=== PATIENT | female | born 1960 | race Caucasian/White ===

== ENCOUNTER 2017-06-27 13:11 | Emergency (ER) | payer OTHER ==
[2017-06-27 13:16] VITALS: BMI 27.4
[2017-06-27] MEDS ORDERED: Sodium Chloride 0.9% 1,000 ML IV SCH (13:45)
--- NOTE | 2017-06-27 13:46 | ED PDOC ---
Arrival/HPI - General Historian: Patient, Family - History of Present Illness Time/Duration: < week Symptom Onset: Gradual Symptom Course: Unchanged Quality: Throbbing Severity Level: 8 Activities at Onset: Rest, Light, Eating Context: Home - General Chief Complaint: Abdominal Pain Time Seen by Provider: 06/27/17 13:24 - History of Present Illness Narrative History of Present Illness (Text): 06/27/17 13:46 Ms. Bruce is a 57 year old female with a past medical history significant for cholecystitis s/p cholecystectomy in 2011, HTN and DM2 who presents to the [facility] ED with a chief complaint of lower abdominal pain for the past three days. Patient states that three days ago while resting at home, she began to feel a dull throbbing pain in her lower abdomen. The pain has been constant since this time with no changes noted with PO intake or defecation. Patient has tried no medications at home to help relieve this pain. Patient denies fever, chills, N/V , diarrhea, constipation or hematochezia but endorses that she has had pain with defecation and notes that her stools have been much darker than usual. She denies headache, changes in her vision, chest pain, palpitations, syncope, SOB, cough, wheezing, hematemesis, burning/pain with urination, hematuria, vaginal bleeding/discharge, rash, numbness/tingling/weakness of any extremity. Of note, patient also denies any recent hospitalizations or recent antibiotic use. Patients son was at bedside and provided translation as patients first language is Belarusian. (YARIEL SUBRAMANIAN) Past Medical History - Provider Review Nursing Documentation Reviewed: Yes - Travel History Have you recently traveled outside [place] w/in the past 3 mons?: No - Past History Past History: No Previous - Infectious Disease Hx of Infectious Diseases: None - Tetanus Immunization Tetanus Immunization: Unknown - Reproductive Menopause: Yes - Cardiac Hx Cardiac Disorders: Yes (HTN, but denies any prior heart problems) Hx Hypertension: Yes - Pulmonary Hx Respiratory Disorders: No - Neurological Hx Neurological Disorder: Yes Hx Dizziness: Yes - HEENT Hx HEENT Disorder: Yes (uses glasses) - Renal Hx Renal Disorder: No - Endocrine/Metabolic Hx Endocrine Disorders: Yes Hx Diabetes Mellitus Type 2: Yes - Hematological/Oncological Hx Blood Disorders: No - Integumentary Hx Dermatological Disorder: No - Musculoskeletal/Rheumatological Hx Musculoskeletal Disorders: Yes Hx Back Pain: Yes (hx of epidurals) - Gastrointestinal Hx Gastrointestinal Disorders: Yes Hx Gastroesophageal Reflux: Yes - Genitourinary/Gynecological Hx Genitourinary Disorders: No - Psychiatric Hx Psychophysiologic Disorder: No Hx Substance Use: No - Surgical History Hx Cholecystectomy: Yes - Anesthesia Hx Anesthesia: Yes Hx Anesthesia Reactions: No Hx Malignant Hyperthermia: No - Suicidal Assessment Feels Threatened In Home Enviroment: No Family/Social History - Physician Review Nursing Documentation Reviewed: Yes Family/Social History: Diabetes Smoking Status: Never Smoked Hx Alcohol Use: No Hx Substance Use: No Hx Substance Use Treatment: No Allergies/Home Meds Allergies/Adverse Reactions: Allergies PORK Allergy (Unknown, Verified 06/27/17 13:17) FATIGUE shrimp Allergy (Intermediate, Uncoded 06/27/17 13:17) ANAPHYLAXIS eggplant Allergy (Uncoded 06/27/17 13:17) ITCHING Home Medications: Home Meds Medication Instructions Recorded Confirmed Omeprazole 20 mg PO DAILY 04/06/14 06/27/17 Acetaminophen with Codeine 1 tab PO PRN PRN 06/27/17 06/27/17 [Tylenol with Codeine #3 Tablet] Lisinopril [Zestril] 10 mg PO DAILY 06/27/17 06/27/17 metFORMIN [glucOPHAGE] 500 mg PO BID 06/27/17 06/27/17 Review of Systems - Physician Review All systems were reviewed & negative as marked: Yes - Review of Systems Constitutional: Normal. absent: Fatigue, Fevers, Night Sweats Eyes: Normal. absent: Vision Changes ENT: Normal. absent: Sore Throat Respiratory: Normal. absent: SOB, Cough, Wheezing Cardiovascular: Normal. absent: Chest Pain, Palpitations, Syncope Gastrointestinal: Abdominal Pain, Stool Changes (Darker than usual). absent: Normal, Constipation, Diarrhea, Nausea, Vomiting, Appetite Changes, Hematochezia , Hematemesis, Food Intolerance Genitourinary Female: Normal. absent: Dysuria, Hematuria, Vaginal Bleeding, Vaginal Discharge Musculoskeletal: Normal Skin: Normal. absent: Rash Neurological: Normal. absent: Headache, Dizziness Endocrine: Normal. absent: Polyuria, Polydipsia Hemo/Lymphatic: Normal Psychiatric: Normal Physical Exam Vital Signs Reviewed: Yes Temperature: Afebrile Blood Pressure: Normal Pulse: Regular Respiratory Rate: Normal Appearance: Positive for: Well-Appearing, Non-Toxic, Comfortable Pain Distress: Mild Mental Status: Positive for: Alert and Oriented X 3 - Systems Exam Head: Present: Atraumatic, Normocephalic Pupils: Present: PERRL Extroacular Muscles: Present: EOMI Conjunctiva: Present: Normal Mouth: Present: Moist Mucous Membranes Pharnyx: Present: Normal. No: ERYTHEMA, EXUDATE, TONSILS ENLARGED Nose (External): Present: Atraumatic Nose (Internal): Present: Normal Inspection Neck: Present: Normal Range of Motion, Trachea Midline. No: Meningeal Signs, MIDLINE TENDERNESS, Paraspinal Tenderness, JVD, Lymphadenopathy Respiratory/Chest: Present: Clear to Auscultation, Good Air Exchange. No: Respiratory Distress, Accessory Muscle Use, Wheezes, Decreased Breath Sounds, Rales, Retracting, Rhonchi, Tachypneic Cardiovascular: Present: Regular Rate and Rhythm, Normal S1, S2, Peripheal Pulses Present. No: Murmurs, Irregular Rhythm, Tachycardic, Bradycardic Abdomen: Present: Tenderness (Hypogastric and RLQ tenderness to palpation), Normal Bowel Sounds. No: Distention, Peritoneal Signs, Rebound, Guarding Back: Present: Normal Inspection. No: CVA Tenderness, Midline Tenderness, Paraspinal Tenderness Upper Extremity: Present: Normal Inspection, Normal ROM, NORMAL PULSES, Capillary Refill < 2s. No: Cyanosis, Edema Lower Extremity: Present: Normal Inspection, NORMAL PULSES, Normal ROM, Capillary Refill < 2 s. No: Edema, CALF TENDERNESS Neurological: Present: GCS=15, CN II-XII Intact, Speech Normal Skin: Present: Warm, Dry, Normal Color. No: Rashes Lymphatic: No: Cervical Adenopathy Psychiatric: Present: Alert, Oriented x 3, Normal Insight, Normal Concentration Vital Signs Temp Pulse Resp BP Pulse Ox 06/27/17 15:12 97.8 F 60 15 118/68 100 06/27/17 13:43 98.1 F 60 17 121/71 100 06/27/17 13:19 98.2 F 61 17 144/80 80 L Medical Decision Making - Lab Interpretations I have reviewed the lab results: Yes Interpretation: No sign. chg./baseline - RAD Interpretation Production Team Leader: Radiologist ED Course and Treatment: pt seen with resident. pt with 3 day h/o of lower abdominal pain. pt reports at times "dark stool". in er, pt trace guiac positive. ct neg. h/h stable. labs unremarkable. 06/27/17 16:14 (Kumar Thurston) 06/27/17 14:00 Impression: 57 year old female with a past medical history significant for cholecystitis s/p cholecystectomy in 2011, HTN and DM2 who presents to the [facility] ED with a chief complaint of lower abdominal pain for the past three days Plan: -CBC, CMP, amylase, lipase, PT/INR, aPTT, cardiac iso's and UA -Stool for occult blood -CT abdomen/pelvis w/ IV contrast -Protonix 40mg IVP -Normal Saline at 100mls/hr -ED NPO -Reassess and disposition Prior Visits: All reports and results from previous hospital visits were reviewed. 03/29/2014: Patient was seen and evaluated for bradycardia (YARIEL SUBRAMANIAN) - Lab Interpretations Narrative Lab Interpretation (Text): 06/27/17 14:38 Patient trace positive for stool guaiac in ED (YARIEL SUBRAMANIAN) Lab Results: 06/27/17 14:14 06/27/17 14:14 Lab Results 06/27/17 14:14: PT 10.4, INR 0.96, APTT 25.7 06/27/17 14:14: Sodium 142, Potassium 4.0, Chloride 106, Carbon Dioxide 25, Anion Gap 15, BUN 9, Creatinine 0.5 L, Est GFR ( Amer) > 60, Est GFR (Non -Af Amer) > 60, Random Glucose 156 H, Calcium 9.5, Total Bilirubin 0.4, AST 38 H , ALT 58 H, Alkaline Phosphatase 112, Lactate Dehydrogenase 397, Total Creatine Kinase 101, Troponin I < 0.01, Total Protein 7.4, Albumin 4.4, Globulin 3.1, Albumin/Globulin Ratio 1.4, Amylase 72, Lipase 136 06/27/17 14:14: WBC 7.0, RBC 3.76, Hgb 11.4 L, Hct 34.1 L, MCV 90.7, MCH 30.3, MCHC 33.4, RDW 12.3, Plt Count 179, MPV 11.3 H, Gran % 45.4 L, Lymph % (Auto) 42.8 H, [place] % (Auto) 8.4 H, Eos % (Auto) 3.3, Baso % (Auto) 0.1, Gran # 3.19, Lymph # 3.0, [place] # 0.6, Eos # 0.2, Baso # 0.01 06/27/17 14:10: Urine Color Yellow, Urine Appearance Clear, Urine pH 6.0, Ur Specific [place] <= 1.005, Urine Protein Negative, Urine Glucose (UA) Negative, Urine Ketones Negative, Urine Blood Negative, Urine Nitrate Negative, Urine Bilirubin Negative, Urine Urobilinogen 0.2, Ur Leukocyte Esterase Negative - RAD Interpretation Radiology Orders: 06/27/17 13:36 ABD & PELVIS IV CONTRAST ONLY [CT] Stat - Medication Orders Current Medication Orders: Sodium Chloride (Sodium Chloride 0.9%) 1,000 mls @ 100 mls/hr IV .Q10H MARINO Last Admin: 06/27/17 14:08 Dose: 100 mls/hr eMAR Start Stop Document 06/27/17 14:08 AB (Rec: 06/27/17 14:09 [id number]) Intravenous Solution Start Date 06/27/17 Start Time 14:08 End Date 06/27/17 Discontinued Medications Pantoprazole Sodium (Protonix Inj) 40 mg IVP STAT STA Stop: 06/27/17 13:41 Last Admin: 06/27/17 14:02 Dose: 40 mg IVP Administration Document 06/27/17 14:02 AB (Rec: 06/27/17 14:08 [id number]) Charges for Administration # of IVP Administrations 1 Disposition/Present on Arrival - Present on Arrival Any Indicators Present on Arrival: No History of DVT/PE: No History of Uncontrolled Diabetes: No Urinary Catheter: No History of Decub. Ulcer: No History Surgical Site Infection Following: None - Disposition Have Diagnosis and Disposition been Completed?: Yes Disposition Time: 16:18 - Disposition Diagnosis: GI (gastrointestinal bleed) Disposition: AGAINST MEDICAL ADVICE Condition: STABLE Discharge Instructions (ExitCare): Gastrointestinal Bleeding (DC) Additional Instructions: Ms. Bruce, thank you for letting us take care of you today. Your provider was Dr. Thurston. You were treated for GI bleeding. The emergency medical care you received today was directed at your acute symptoms. If you were prescribed any medication, please fill it and take as directed. It may take several days for your symptoms to resolve. Return to the Emergency Department if your symptoms worsen, do not improve, or if you have any other problems. Please contact your doctor or call one of the physicians/clinics you have been referred to that are listed on the Patient Visit Information form that is included in your discharge packet. Bring any paperwork you were given at discharge with you along with any medications you are taking to your follow up visit. Our treatment cannot replace ongoing medical care by a primary care provider (PCP) outside of the emergency department. PLEASE FOLLOW UP WITH YOUR PRIMARY CARE DOCTOR AND A GI DOCTOR OF YOUR CHOICE. ONE OF EACH HAS BEEN REFERRED TO YOU ALONG WITH CONTACT INFORMATION. Thank you for allowing the [facility] team to be part of your care today. If you had an X-Ray or CT scan: A Radiologist will review the ED reading if any change in treatment is needed we will contact you. Referrals: PCP,JULI [Primary Care Provider] - Follow up with primary [facility] [Outside] - Follow up with primary Gonzalo Wyatt MD [Staff Provider] - Follow up with primary [facility] [Outside] - Follow up with primary Forms: [employer] (Zimbabwean) Against Medical Advice - AMA Patient Left Against Medical Advice: The patient declines admission to the hospital and wishes to leave the Emergency Department. This action is against my medical advice. This decision was made with informed refusal. The patient was told that admission to the hospital is necessary. Explanation of the reasons why were discussed. The risks of leaving were explained to the patient and include, but are not limited to, worsening of known or currently unknown conditions, permanent disability and from undiagnosed or untreated conditions. The patient has the capacity to make this informed decision and understands my explanation of the current medical problem and risks of leaving. The patient voluntarily accepts these risks and signed an AMA form documenting our conversation. The patient was given the opportunity to ask questions and reconsider. The patient was encouraged to return to the Emergency Department at any time for further care.
[2017-06-27 14:21] LABS: BASO # 0.01 K/mm3 (0.0-2.0); BASO % 0.1 % (0.0-3.0); EOS # 0.2 (0.0-0.7); EOS % 3.3 % (1.5-5.0); GRAN # 3.19 (1.4-6.5); GRAN % 45.4 % (50.0-68.0); HEMATOCRIT 34.1 % (36.0-48.0); LYMPH % 42.8 % (22.0-35.0); MEAN CELL VOLUME 90.7 fl (80.0-105.0); MEAN CORPUSCULAR HEMOGLOBIN 30.3 pg (25.0-35.0); MEAN CORPUSCULAR HGB CONC 33.4 g/dl (31.0-37.0); MEAN PLATELET VOLUME 11.3 fl (7.0-11.0); MONO # 0.6 (0.1-0.6); MONO % 8.4 % (1.0-6.0); RED CELL DISTRIBUTION WIDTH 12.3 % (11.5-14.5)
[2017-06-27 14:28] LABS: INR 0.96 (0.93-1.08); PARTIAL THROMBOPLASTIN TIME 25.7 Seconds (23.7-30.8)
[2017-06-27 14:31] LABS: ALB/GLOB RATIO 1.4 (1.1-1.8); ALKALINE PHOSPHATASE 112 U/L (38-126); ALT/SGPT 58 U/L (7-56); AMYLASE 72 U/L (35-125); AST/SGOT 38 U/L (14-36); BILIRUBIN,TOTAL 0.4 mg/dL (0.2-1.3); BLOOD UREA NITROGEN 9 mg/dL (7-21); CALCIUM 9.5 mg/dL (8.4-10.5); CARBON DIOXIDE 25 mmol/L (21-33); CHLORIDE 106 mmol/L (98-107); GFR AFRICAN-AMERICAN > 60; GLUCOSE,RANDOM 156 mg/dL (70-110); LIPASE 136 U/L (23-300); SODIUM 142 mmol/L (132-148); TOTAL PROTEIN 7.4 g/dL (5.8-8.3)
[2017-06-27 14:42] LABS: TROPONIN I < 0.01 ng/mL
[2017-06-27 15:00] LABS: URINE BILIRUBIN NEGATIVE (NEGATIVE); URINE BLOOD NEGATIVE (NEGATIVE); URINE GLUCOSE (UA) NEGATIVE (NEGATIVE); URINE KETONE NEGATIVE (NEGATIVE); URINE LEUKOCYTE ESTERASE NEGATIVE Leu/uL (NEGATIVE); URINE PROTEIN NEGATIVE mg/dL (<30 mg/dL); URINE UROBILINOGEN 0.2 E.U./dL (<1 E.U./dL)
[2017-06-27 15:06] LABS: URINE APPEARANCE CLEAR (CLEAR); URINE COLOR YELLOW (YELLOW)
[2017-06-27] MEDS ORDERED: Iohexol 350 MG/100 ML VIAL ONE (15:17)
[2017-06-27 15:20] VITALS: RESP 15
[2017-06-27 15:59] VITALS: BP 118/68; PULSE 60; TEMP 97.8; O2SAT 100
--- NOTE | 2017-06-27 16:08 | CT ---
PROCEDURE: CT Abdomen and Pelvis with contrast HISTORY: Abdominal pain/dark stools COMPARISON: 04/08/2014 CT TECHNIQUE: Contrast dose: 100 cc of Omni 350 Radiation dose: Total exam DLP = 482 mGy-cm. This CT exam was performed using one or more of the following dose reduction techniques: Automated exposure control, adjustment of the mA and/or kV according to patient size, and/or use of iterative reconstruction technique. FINDINGS: LOWER THORAX: Unremarkable. LIVER: Unremarkable. No gross lesion or ductal dilatation. Mild fatty infiltration of the liver GALLBLADDER AND BILE DUCTS: Gallbladder removed PANCREAS: Unremarkable. No gross lesion or ductal dilatation. SPLEEN: Unremarkable. ADRENALS: Unremarkable. No mass. KIDNEYS AND URETERS: Unremarkable. No hydronephrosis. No solid mass. VASCULATURE: Unremarkable. No aortic aneurysm. BOWEL: Unremarkable. No obstruction. No gross mural thickening. APPENDIX: Normal appendix. PERITONEUM: Unremarkable. No free fluid. No free air. LYMPH NODES: Unremarkable. No enlarged lymph nodes. BLADDER: Unremarkable. REPRODUCTIVE: Unremarkable. BONES: No acute fracture. OTHER FINDINGS: None. IMPRESSION: Unremarkable contrast enhanced CT of the abdomen and pelvis.
== END 2017-06-27 16:53 | disposition left against medical advice (07) ==
LOC: ED 13:11
DX: K92.2 Gastrointestinal hemorrhage, unspecified (principal); E11.9 Type 2 diabetes mellitus without complications; I10 Essential (primary) hypertension
CPT/HCPCS: 74177; 80053; 81003; 82150; 82550; 83615; 83690; 84484; 85025; 85610; 85730; 96374; 99284; C9113; J7040; Q9967

== ENCOUNTER 2017-08-15 13:32 | Emergency (ER) | payer MEDICAID ==
[2017-08-15 13:32] VITALS: BMI 27.4
[2017-08-15 13:52] VITALS: RESP 16; TEMP 98
--- NOTE | 2017-08-15 14:14 | ED PDOC ---
Arrival/HPI - General Chief Complaint: Abdominal Pain Time Seen by Provider: 08/15/17 13:46 - History of Present Illness Narrative History of Present Illness (Text): 57 year old year old female w/ past medical history of hypertension, hyperlipidemia, dm presents complaining of > 7 wks of diarrhea 3-6 times daily mostly watery and loose , never w/ BRBPR/ melena/ recent history of antibiotic admin. + history of distant parasitosis in [facility] 08/15/17 14:14 Time/Duration: > month Symptom Course: Unchanged Past Medical History - Provider Review Nursing Documentation Reviewed: Yes - Past History Past History: No Previous - Infectious Disease Hx of Infectious Diseases: None - Tetanus Immunization Tetanus Immunization: Unknown - Reproductive Menopause: Yes - Cardiac Hx Cardiac Disorders: Yes (HTN, but denies any prior heart problems) Hx Hypertension: Yes - Pulmonary Hx Respiratory Disorders: No - Neurological Hx Neurological Disorder: Yes Hx Dizziness: Yes - HEENT Hx HEENT Disorder: Yes (uses glasses) - Renal Hx Renal Disorder: No - Endocrine/Metabolic Hx Endocrine Disorders: Yes Hx Diabetes Mellitus Type 2: Yes - Hematological/Oncological Hx Blood Disorders: No - Integumentary Hx Dermatological Disorder: No - Musculoskeletal/Rheumatological Hx Musculoskeletal Disorders: Yes Hx Back Pain: Yes (hx of epidurals) - Gastrointestinal Hx Gastrointestinal Disorders: Yes Hx Gastroesophageal Reflux: Yes - Genitourinary/Gynecological Hx Genitourinary Disorders: No - Psychiatric Hx Psychophysiologic Disorder: No Hx Substance Use: No - Surgical History Hx Cholecystectomy: Yes - Anesthesia Hx Anesthesia: Yes Hx Anesthesia Reactions: No Hx Malignant Hyperthermia: No - Suicidal Assessment Feels Threatened In Home Enviroment: No Family/Social History - Physician Review Nursing Documentation Reviewed: Yes Family/Social History: No Known Family HX Smoking Status: Never Smoked Hx Alcohol Use: No Hx Substance Use: No Hx Substance Use Treatment: No Allergies/Home Meds Allergies/Adverse Reactions: Allergies PORK Allergy (Unknown, Verified 06/27/17 13:17) FATIGUE shrimp Allergy (Intermediate, Uncoded 06/27/17 13:17) ANAPHYLAXIS eggplant Allergy (Uncoded 06/27/17 13:17) ITCHING Home Medications: Home Meds Medication Instructions Recorded Confirmed Acetaminophen with Codeine 1 tab PO PRN PRN 06/27/17 06/27/17 [Tylenol with Codeine #3 Tablet] Lisinopril [Zestril] 10 mg PO DAILY 10/04/17 11/22/17 metFORMIN [glucOPHAGE] 500 mg PO BID 06/27/17 08/15/17 Review of Systems - Physician Review All systems were reviewed & negative as marked: Yes - Review of Systems Constitutional: Normal Eyes: Normal ENT: Normal Respiratory: Normal Cardiovascular: Normal Gastrointestinal: Abdominal Pain, Diarrhea Genitourinary Female: Normal Musculoskeletal: Normal Skin: Normal Neurological: Normal Endocrine: Normal Hemo/Lymphatic: Normal Psychiatric: Normal Physical Exam Vital Signs Reviewed: Yes Vital Signs Temp Pulse Resp BP Pulse Ox 08/15/17 13:41 98 F 58 L 16 122/77 96 Temperature: Afebrile Blood Pressure: Normal Pulse: Regular Respiratory Rate: Normal Appearance: Positive for: Well-Appearing, Non-Toxic, Comfortable Pain Distress: None Mental Status: Positive for: Alert and Oriented X 3 - Systems Exam Head: Present: Atraumatic, Normocephalic Pupils: Present: PERRL Extroacular Muscles: Present: EOMI Conjunctiva: Present: Normal Mouth: Present: Moist Mucous Membranes Neck: Present: Normal Range of Motion Respiratory/Chest: Present: Clear to Auscultation, Good Air Exchange. No: Respiratory Distress, Accessory Muscle Use Cardiovascular: Present: Regular Rate and Rhythm, Normal S1, S2. No: Murmurs Abdomen: Present: Normal Bowel Sounds, Other (mild distratible upper quadrant discomfort w/ deep palpation). No: Tenderness, Distention, Peritoneal Signs Back: Present: Normal Inspection Upper Extremity: Present: Normal Inspection. No: Cyanosis, Edema Lower Extremity: Present: Normal Inspection. No: Edema Neurological: Present: GCS=15, CN II-XII Intact, Speech Normal, Motor Func Grossly Intact, Normal Sensory Function, Normal Cerebellar Funct, Norm Deep Tendon Reflexes, Gait Normal, Memory Normal, Normal 2Pt Descrimination Skin: Present: Warm, Dry, Normal Color. No: Rashes Psychiatric: Present: Alert, Oriented x 3, Normal Insight, Normal Concentration Medical Decision Making ED Course and Treatment: 7 year old [place] w/ past medical history of DM, HTN prior visit w/ similar complaints p/w 6-7 weeks of ongoing diarrheal bm's denying any recent history of travel. Serial bowel exams wnl. Labs wnl. unable to produce stool sample in emergency department for further stool characterization. Will try on a week of diet modification/ abx /psyllium and bentyl to see if diarrhea and and pain improved. 08/15/17 16:05 - Lab Interpretations Lab Results: 08/15/17 13:48 Lab Results 08/15/17 15:00: PT 11.0, INR 1.01, APTT 29.0 08/15/17 13:50: Urine Color Straw, Urine Appearance Clear, Urine pH 6.0, Ur Specific [place] <= 1.005, Urine Protein Negative, Urine Glucose (UA) Negative, Urine Ketones Negative, Urine Blood Negative, Urine Nitrate Negative, Urine Bilirubin Negative, Urine Urobilinogen 0.2, Ur Leukocyte Esterase Negative 08/15/17 13:48: WBC 7.4, RBC 3.83, Hgb 11.5 L, Hct 34.6 L, MCV 90.3, MCH 30.0, MCHC 33.2, RDW 12.2, Plt Count 172, MPV 12.1 H, Gran % 50.3, Lymph % (Auto) 41.1 H, [place] % (Auto) 6.0, Eos % (Auto) 2.2, Baso % (Auto) 0.4, Gran # 3.72, Lymph # 3.0, [place] # 0.4, Eos # 0.2, Baso # 0.03 - RAD Interpretation Radiology Orders: 08/15/17 13:48 ABD 2 VIEWS (FLAT/UP OR DECUB) [RAD] Stat 08/15/17 13:50 CHEST TWO VIEWS (PA/LAT) [RAD] Stat Disposition/Present on Arrival - Present on Arrival Any Indicators Present on Arrival: No History of DVT/PE: No History of Uncontrolled Diabetes: No Urinary Catheter: No History of Decub. Ulcer: No History Surgical Site Infection Following: None - Disposition Have Diagnosis and Disposition been Completed?: Yes Diagnosis: Diarrhea Disposition: HOME/ ROUTINE Disposition Time: 16:11 Patient Plan: Discharge Condition: IMPROVED Discharge Instructions (ExitCare): Acute Diarrhea (ED), Chronic Diarrhea (ED) Print Language: EMIRATI Additional Instructions: Avoid diary and meat while with dairy and taking the antiobiotics. Drink plenty of water to combat dehydration. Please follow up wtih your regular pmd for further stool testig which could help us in identifying the cause of your continuing diarrhea. Prescriptions: Ciprofloxacin HCl [Cipro] 500 mg PO BID #14 tablet Dicyclomine [Dicyclomine HCl] 10 mg PO TID PRN #20 cap PRN Reason: Pain, Moderate (4-7) Metronidazole [Flagyl] 500 mg PO TID #21 tab Psyllium Husk [Konsyl] 300 gm PO BID PRN 5 Days powder PRN Reason: Diarrhea Referrals: Sultan Powers MD [Primary Care Provider] - Follow up with primary Forms: [employer] (Chinese)
[2017-08-15 14:28] LABS: URINE BILIRUBIN NEGATIVE (NEGATIVE); URINE BLOOD NEGATIVE (NEGATIVE); URINE GLUCOSE (UA) NEGATIVE (NEGATIVE); URINE KETONE NEGATIVE (NEGATIVE); URINE LEUKOCYTE ESTERASE NEGATIVE Leu/uL (NEGATIVE); URINE PROTEIN NEGATIVE mg/dL (<30 mg/dL); URINE UROBILINOGEN 0.2 E.U./dL (<1 E.U./dL)
[2017-08-15 14:34] LABS: URINE APPEARANCE CLEAR (CLEAR); URINE COLOR STRAW (YELLOW)
[2017-08-15 14:57] LABS: BASO # 0.03 K/mm3 (0.0-2.0); BASO % 0.4 % (0.0-3.0); EOS # 0.2 (0.0-0.7); EOS % 2.2 % (1.5-5.0); GRAN # 3.72 (1.4-6.5); GRAN % 50.3 % (50.0-68.0); HEMATOCRIT 34.6 % (36.0-48.0); LYMPH % 41.1 % (22.0-35.0); MEAN CELL VOLUME 90.3 fl (80.0-105.0); MEAN CORPUSCULAR HGB CONC 33.2 g/dl (31.0-37.0); MEAN PLATELET VOLUME 12.1 fl (7.0-11.0); MONO # 0.4 (0.1-0.6); RED CELL DISTRIBUTION WIDTH 12.2 % (11.5-14.5); WHITE BLOOD COUNT 7.4 10^3/ul (4.5-11.0)
[2017-08-15 15:05] LABS: INR 1.01 (0.93-1.08)
--- NOTE | 2017-08-15 15:52 | RAD ---
HISTORY: Routine medical exam COMPARISON: 01/01/2015 TECHNIQUE: Chest PA and lateral FINDINGS: LUNGS: No active pulmonary disease. PLEURA: No significant pleural effusion identified. No pneumothorax apparent. CARDIOVASCULAR: Cardiomegaly, mild pulmonary vascular congestion. OSSEOUS STRUCTURES: No significant abnormalities. VISUALIZED UPPER ABDOMEN: Normal. OTHER FINDINGS: None. IMPRESSION: No active pulmonary disease.
--- NOTE | 2017-08-15 15:54 | RAD ---
HISTORY: examine gas pattern COMPARISON: She FINDINGS: BOWEL: Normal. No obstruction. No free air. BONES: Normal. OTHER FINDINGS: None. IMPRESSION: No significant or acute findings to account for/ related to the clinical presentation.
[2017-08-15 16:30] LABS: ALB/GLOB RATIO 1.2 (1.1-1.8); ALKALINE PHOSPHATASE 113 U/L (38-126); ALT/SGPT 52 U/L (7-56); AMYLASE 78 U/L (35-125); AST/SGOT 33 U/L (14-36); BILIRUBIN,TOTAL 0.5 mg/dL (0.2-1.3); BLOOD UREA NITROGEN 10 mg/dL (7-21); CALCIUM 9.6 mg/dL (8.4-10.5); CARBON DIOXIDE 27 mmol/L (21-33); CHLORIDE 105 mmol/L (98-107); GFR AFRICAN-AMERICAN > 60; GLUCOSE,RANDOM 167 mg/dL (70-110); LIPASE 204 U/L (23-300); POTASSIUM 4.1 mmol/L (3.6-5.0); SODIUM 143 mmol/L (132-148); TOTAL PROTEIN 7.6 g/dL (5.8-8.3)
[2017-08-15 16:54] VITALS: BP 123/87; PULSE 60; O2SAT 100
== END 2017-08-15 16:50 | disposition home or self-care (01) ==
LOC: ED 13:32
DX: R19.7 Diarrhea, unspecified (principal); I10 Essential (primary) hypertension; E11.9 Type 2 diabetes mellitus without complications

== ENCOUNTER 2017-08-23 15:20 | Emergency (ER) | payer MEDICAID ==
[2017-08-23 15:21] VITALS: BMI 27.4
[2017-08-23 15:33] VITALS: TEMP 97.8
[2017-08-23] MEDS ORDERED: Sodium Chloride 0.9% 1,000 ML IV STA (16:01)
--- NOTE | 2017-08-23 16:08 | ED PDOC ---
Arrival/HPI - General Historian: Patient, Family - History of Present Illness Time/Duration: > month Symptom Onset: Sudden Symptom Course: Unchanged Quality: Cramping Severity Level: Mild - General Chief Complaint: GI Problem Time Seen by Provider: 08/23/17 15:23 - History of Present Illness Narrative History of Present Illness (Text): 08/23/17 16:04 This is a 57 yo female with past medical hx of HTN, DM, PUD, presenting with chief complaint of diarrhea. Diarrhea has been present x 2 months . It is watery in nature but not very voluminous. It occurs with every BM. Denies recent travel. Does not happen any particular time of day. Denies hx of IBD. It is non bloody. Pt has been eliminating certain foods from her diet but the diarrhea persists. Son reports pt is under a lot of stress and thinks that there could be an association. Also reports some right sided abdominal pain, non radiating. Feels like gas pains. Denies vomiting, fevers, chills. PMH: DM, HTN, PUD PSH: cholecystectomy Allergies: NKDA FH: DM Home meds: metformin, lisinopril, protonix Social hx: denies smoking, drinking, drug use. Born in [facility]. (Edilson Rodriguez) Past Medical History - Provider Review Nursing Documentation Reviewed: Yes - Past History Past History: No Previous - Infectious Disease Hx of Infectious Diseases: None - Tetanus Immunization Tetanus Immunization: Unknown - Cardiac Hx Cardiac Disorders: Yes (HTN, but denies any prior heart problems) Hx Hypertension: Yes - Pulmonary Hx Respiratory Disorders: No - Neurological Hx Neurological Disorder: Yes Hx Dizziness: Yes - HEENT Hx HEENT Disorder: Yes (uses glasses) - Renal Hx Renal Disorder: No - Endocrine/Metabolic Hx Endocrine Disorders: Yes Hx Diabetes Mellitus Type 2: Yes - Hematological/Oncological Hx Blood Disorders: No - Integumentary Hx Dermatological Disorder: No - Musculoskeletal/Rheumatological Hx Musculoskeletal Disorders: Yes Hx Back Pain: Yes (hx of epidurals) - Gastrointestinal Hx Gastrointestinal Disorders: Yes Hx Gastroesophageal Reflux: Yes - Genitourinary/Gynecological Hx Genitourinary Disorders: No - Psychiatric Hx Psychophysiologic Disorder: No Hx Substance Use: No - Surgical History Hx Cholecystectomy: Yes - Anesthesia Hx Anesthesia: Yes Hx Anesthesia Reactions: No Hx Malignant Hyperthermia: No - Suicidal Assessment Feels Threatened In Home Enviroment: No Family/Social History - Physician Review Nursing Documentation Reviewed: Yes Family/Social History: Diabetes Smoking Status: Never Smoked Hx Alcohol Use: No Hx Substance Use: No Hx Substance Use Treatment: No Allergies/Home Meds Allergies/Adverse Reactions: Allergies PORK Allergy (Unknown, Verified 08/23/17 15:33) FATIGUE shrimp Allergy (Intermediate, Uncoded 08/23/17 15:33) ANAPHYLAXIS eggplant Allergy (Uncoded 08/23/17 15:33) ITCHING Home Medications: Home Meds Medication Instructions Recorded Confirmed Lisinopril [Zestril] 20 mg PO DAILY 06/27/17 08/23/17 metFORMIN [glucOPHAGE] 500 mg PO BID 06/27/17 08/23/17 Pantoprazole [Protonix EC Tab] 20 mg PO BID 08/23/17 08/23/17 Review of Systems - Review of Systems Constitutional: Weight Change. absent: Fevers, Night Sweats Eyes: absent: Vision Changes, Photophobia ENT: absent: Hearing Changes, Tinnitus Respiratory: absent: SOB, Cough Cardiovascular: absent: Chest Pain, Palpitations Gastrointestinal: Abdominal Pain, Stool Changes, Diarrhea. absent: Nausea, Vomiting Genitourinary Female: absent: Dysuria, Frequency Musculoskeletal: Arthralgias Skin: absent: Rash, Pruritis Neurological: Dizziness. absent: Headache Endocrine: absent: Diaphoresis, Polyuria Hemo/Lymphatic: absent: Adenopathy, Easy Bleeding Psychiatric: absent: Anxiety, Depression Physical Exam Vital Signs Reviewed: Yes Mental Status: Positive for: Alert and Oriented X 3 - Systems Exam Head: Present: Atraumatic, Normocephalic Pupils: Present: PERRL Extroacular Muscles: Present: EOMI Neck: Present: Normal Range of Motion. No: JVD Respiratory/Chest: Present: Clear to Auscultation. No: Respiratory Distress Cardiovascular: Present: Normal S1, S2 Abdomen: No: Tenderness (very minimal tenderness to deep palpation), Distention , Peritoneal Signs, Rebound, Guarding Upper Extremity: Present: Normal Inspection. No: Cyanosis, Edema Lower Extremity: Present: Normal Inspection. No: Edema Neurological: Present: CN II-XII Intact, Speech Normal Skin: Present: Warm, Dry Psychiatric: Present: Alert, Oriented x 3, Normal Insight, Normal Concentration Vital Signs Temp Pulse Resp BP Pulse Ox 08/23/17 17:10 58 L 18 127/64 97 08/23/17 15:27 97.8 F 54 L 17 129/66 100 Medical Decision Making ED Course and Treatment: 08/23/17 17:08 57 yo female presenting with abdominal pain differential included IBD, IBS, microscopic colitis, infectious etiology -will order CBC, CMP -stool ova and parasites -stool leukocytes -stool electrolytes -stool giardia -will give fluids and reassess 08/23/17 17:25 (Edilson Rodriguez) 08/23/17 18:00 57 yo female c/o diarrhea for over a month with intermittent abdominal pain. Abdominal pain is right sided. Abdomen is soft, NT, ND, BSx4 Patient is tolerating PO fluids. No vomiting. Labs ordered. IVF ordered. Will reevaluate and disposition. Agree with resident history and physical, assessment and plan. 08/23/17 18:50 Patient feels better. Did not have diarrhea during her ED stay. Will f/u with PMD and obtain stool studies as an outpatient. (Ramin Terry) - Lab Interpretations Lab Results: 08/23/17 16:20 08/23/17 17:55 Lab Results 08/23/17 17:55: Sodium 141, Potassium 4.2, Chloride 105, Carbon Dioxide 26, Anion Gap 14, BUN 7, Creatinine 0.6 L, Est GFR ( Amer) > 60, Est GFR (Non -Af Amer) > 60, Random Glucose 202 H, Calcium 9.3, Total Bilirubin 0.6, AST 58 H D, ALT 79 H, Alkaline Phosphatase 113, Total Protein 7.6, Albumin 4.4, Globulin 3.3, Albumin/Globulin Ratio 1.3 08/23/17 16:40: Urine Color Yellow, Urine Appearance Clear, Urine pH 6.0, Ur Specific [place] 1.010, Urine Protein Negative, Urine Glucose (UA) Negative, Urine Ketones Negative, Urine Blood Negative, Urine Nitrate Negative, Urine Bilirubin Negative, Urine Urobilinogen 0.2, Ur Leukocyte Esterase Negative 08/23/17 16:20: WBC 7.2, RBC 3.83, Hgb 11.5 L, Hct 34.9 L, MCV 91.1, MCH 30.0, MCHC 33.0, RDW 12.9, Plt Count 186, MPV 12.0 H, Gran % 57.1, Lymph % (Auto) 34.8 , [place] % (Auto) 6.1 H, Eos % (Auto) 1.9, Baso % (Auto) 0.1, Gran # 4.11, Lymph # 2.5, [place] # 0.4, Eos # 0.1, Baso # 0.01 - Medication Orders Current Medication Orders: Discontinued Medications Sodium Chloride (Sodium Chloride 0.9%) 1,000 mls @ 999 mls/hr IV .Q1H1M STA Stop: 08/23/17 17:01 Last Admin: 08/23/17 16:22 Dose: 999 mls/hr eMAR Start Stop Document 08/23/17 16:22 [email or web address] (Rec: 08/23/17 16:23 [email or web address] [id number]) Intravenous Solution Start Date 08/23/17 Start Time 16:23 End Date 08/23/17 Disposition/Present on Arrival - Present on Arrival Any Indicators Present on Arrival: No History of DVT/PE: No History of Uncontrolled Diabetes: No Urinary Catheter: No History of Decub. Ulcer: No History Surgical Site Infection Following: None - Disposition Have Diagnosis and Disposition been Completed?: Yes Disposition Time: 18:30 Patient Plan: Discharge - Disposition Diagnosis: Diarrhea Disposition: HOME/ ROUTINE Patient Problems: Current Active Problems Problem Status Onset Diarrhea Acute Condition: STABLE Discharge Instructions (ExitCare): Chronic Diarrhea (ED) Referrals: Francisco Leong MD [Primary Care Provider] - Follow up with primary Forms: [employer] ([employer])
[2017-08-23 16:44] LABS: BASO # 0.01 K/mm3 (0.0-2.0); BASO % 0.1 % (0.0-3.0); EOS # 0.1 (0.0-0.7); EOS % 1.9 % (1.5-5.0); GRAN # 4.11 (1.4-6.5); GRAN % 57.1 % (50.0-68.0); HEMATOCRIT 34.9 % (36.0-48.0); LYMPH # 2.5 (1.2-3.4); LYMPH % 34.8 % (22.0-35.0); MEAN CELL VOLUME 91.1 fl (80.0-105.0); MONO # 0.4 (0.1-0.6); MONO % 6.1 % (1.0-6.0); RED CELL DISTRIBUTION WIDTH 12.9 % (11.5-14.5); WHITE BLOOD COUNT 7.2 10^3/ul (4.5-11.0)
[2017-08-23 16:59] LABS: URINE BILIRUBIN NEGATIVE (NEGATIVE); URINE BLOOD NEGATIVE (NEGATIVE); URINE GLUCOSE (UA) NEGATIVE (NEGATIVE); URINE KETONE NEGATIVE (NEGATIVE); URINE LEUKOCYTE ESTERASE NEGATIVE Leu/uL (NEGATIVE); URINE PROTEIN NEGATIVE mg/dL (<30 mg/dL); URINE UROBILINOGEN 0.2 E.U./dL (<1 E.U./dL)
[2017-08-23 17:08] LABS: URINE APPEARANCE CLEAR (CLEAR); URINE COLOR YELLOW (YELLOW)
[2017-08-23 18:32] LABS: ALB/GLOB RATIO 1.3 (1.1-1.8); ALKALINE PHOSPHATASE 113 U/L (38-126); ALT/SGPT 79 U/L (7-56); AST/SGOT 58 U/L (14-36); BILIRUBIN,TOTAL 0.6 mg/dL (0.2-1.3); BLOOD UREA NITROGEN 7 mg/dL (7-21); CALCIUM 9.3 mg/dL (8.4-10.5); CARBON DIOXIDE 26 mmol/L (21-33); CHLORIDE 105 mmol/L (98-107); GFR AFRICAN-AMERICAN > 60; GLUCOSE,RANDOM 202 mg/dL (70-110); POTASSIUM 4.2 mmol/L (3.6-5.0); SODIUM 141 mmol/L (132-148); TOTAL PROTEIN 7.6 g/dL (5.8-8.3)
[2017-08-23 18:58] VITALS: BP 126/87; PULSE 60; RESP 16; O2SAT 100
== END 2017-08-23 18:56 | disposition home or self-care (01) ==
LOC: ED 15:20
DX: R19.7 Diarrhea, unspecified (principal)
CPT/HCPCS: 80053; 81003; 84443; 85025; 99284; J7040

== ENCOUNTER 2018-08-06 18:15 | Emergency (ER) | payer MEDICAID, OTHER ==
[2018-08-06 18:32] VITALS: BMI 25.7
[2018-08-06 18:42] VITALS: TEMP 98.2
[2018-08-06] MEDS ORDERED: Sodium Chloride 0.9% 1,000 ML IV STA (19:02)
[2018-08-06 19:23] LABS: URINE BILIRUBIN NEGATIVE (NEGATIVE); URINE BLOOD NEGATIVE (NEGATIVE); URINE GLUCOSE (UA) NEGATIVE (NEGATIVE); URINE LEUKOCYTE ESTERASE TRACE Leu/uL (NEGATIVE); URINE PROTEIN NEGATIVE mg/dL (<30 mg/dL); URINE UROBILINOGEN 0.2 E.U./dL (<1 E.U./dL)
[2018-08-06 19:25] LABS: BASO # 0.02 K/mm3 (0.0-2.0); BASO % 0.2 % (0.0-3.0); EOS # 0.1 (0.0-0.7); EOS % 1.2 % (1.5-5.0); GRAN # 6.87 (1.4-6.5); GRAN % 64.6 % (50.0-68.0); HEMOGLOBIN 12.2 g/dL (12.0-16.0); LYMPH % 27.9 % (22.0-35.0); MEAN CELL VOLUME 92.4 fl (80.0-105.0); MEAN CORPUSCULAR HGB CONC 33.6 g/dl (31.0-37.0); MEAN PLATELET VOLUME 10.8 fl (7.0-11.0); MONO # 0.7 (0.1-0.6); MONO % 6.1 % (1.0-6.0); RBC 3.93 10^6/uL (3.5-6.1); RED CELL DISTRIBUTION WIDTH 12.3 % (11.5-14.5); WHITE BLOOD COUNT 10.6 10^3/uL (4.5-11.0)
[2018-08-06 19:27] LABS: PROTHROMBIN TIME 11.4 SECONDS (9.4-12.5)
[2018-08-06 19:28] LABS: ALB/GLOB RATIO 1.3 (1.1-1.8); ALBUMIN 4.7 g/dL (3.0-4.8); ALT/SGPT 24 U/L (7-56); AST/SGOT 21 U/L (14-36); BLOOD UREA NITROGEN 8 mg/dL (7-21); CALCIUM 9.4 mg/dL (8.4-10.5); GFR NON-AFRICAN AMERICAN > 60; LIPASE 72 U/L (23-300)
--- NOTE | 2018-08-06 19:30 | ED PDOC ---
Arrival/HPI - General Chief Complaint: Abdominal Pain Time Seen by Provider: 08/06/18 18:24 Historian: Patient - History of Present Illness Narrative History of Present Illness (Text): 08/06/18 19:02 58 year old female, whose past medical history includes HTN, DM, PUD,cholecystectomy, presents to the emergency department complaining of right sided abdominal pain, for the past 4-5 days. Patient reports a burning sensation in her abdominal region, she noted associated nausea and diarrhea everyday for the past 4-5 day, today alone she has 7-8 episodes of diarrhea. Patient denies travel, taking antibiotics, fever, vomit, chest pain, back pain, neck pain, or any other complaint. Time/Duration: < week Symptom Onset: Gradual Symptom Course: Unchanged Activities at Onset: Light Context: Home Past Medical History - Provider Review Nursing Documentation Reviewed: Yes - Past History Past History: No Previous - Infectious Disease Hx of Infectious Diseases: None - Tetanus Immunization Tetanus Immunization: Unknown - Cardiac Hx Cardiac Disorders: Yes (HTN, but denies any prior heart problems) Hx Hypertension: Yes - Pulmonary Hx Respiratory Disorders: No - Neurological Hx Neurological Disorder: Yes Hx Dizziness: Yes - HEENT Hx HEENT Disorder: Yes (uses glasses) - Renal Hx Renal Disorder: No - Endocrine/Metabolic Hx Endocrine Disorders: Yes Hx Diabetes Mellitus Type 2: Yes - Hematological/Oncological Hx Blood Disorders: No - Integumentary Hx Dermatological Disorder: No - Musculoskeletal/Rheumatological Hx Musculoskeletal Disorders: Yes Hx Back Pain: Yes (hx of epidurals) - Gastrointestinal Hx Gastrointestinal Disorders: Yes Hx Gastroesophageal Reflux: Yes - Genitourinary/Gynecological Hx Genitourinary Disorders: No - Psychiatric Hx Psychophysiologic Disorder: No Hx Substance Use: No - Surgical History Hx Cholecystectomy: Yes - Anesthesia Hx Anesthesia: Yes Hx Anesthesia Reactions: No Hx Malignant Hyperthermia: No - Suicidal Assessment Feels Threatened In Home Enviroment: No Family/Social History - Physician Review Nursing Documentation Reviewed: Yes Family/Social History: No Known Family HX Smoking Status: Never Smoked Hx Alcohol Use: No Hx Substance Use: No Hx Substance Use Treatment: No Allergies/Home Meds Allergies/Adverse Reactions: Allergies PORK Allergy (Unknown, Verified 08/06/18 18:32) FATIGUE shrimp Allergy (Intermediate, Uncoded 08/06/18 18:32) ANAPHYLAXIS eggplant Allergy (Uncoded 08/06/18 18:32) ITCHING Home Medications: Home Meds Medication Instructions Recorded Confirmed Lisinopril [Zestril] 20 mg PO DAILY 06/27/17 08/23/17 metFORMIN [glucOPHAGE] 500 mg PO BID 06/27/17 08/23/17 Pantoprazole [Protonix EC Tab] 20 mg PO BID 08/23/17 08/23/17 Review of Systems - Physician Review All systems were reviewed & negative as marked: Yes - Review of Systems Constitutional: absent: Fevers Eyes: absent: Vision Changes Respiratory: absent: SOB, Cough Cardiovascular: absent: Chest Pain, Edema Gastrointestinal: Abdominal Pain (burning sensation in abdominal region), Diarrhea, Nausea. absent: Vomiting Genitourinary Female: absent: Dysuria Musculoskeletal: absent: Back Pain, Neck Pain Skin: absent: Rash Neurological: absent: Headache, Dizziness Physical Exam Vital Signs Reviewed: Yes Vital Signs Temp Pulse Resp BP Pulse Ox 08/06/18 18:32 98.2 F 67 19 119/68 100 Temperature: Afebrile Blood Pressure: Normal Pulse: Regular Respiratory Rate: Normal Appearance: Positive for: Well-Appearing, Non-Toxic, Comfortable Pain Distress: None Mental Status: Positive for: Alert and Oriented X 3 - Systems Exam Head: Present: Atraumatic, Normocephalic Pupils: Present: PERRL Extroacular Muscles: Present: EOMI Conjunctiva: Present: Normal Mouth: Present: Dry (dry mucous membranes). No: Moist Mucous Membranes Neck: Present: Normal Range of Motion Respiratory/Chest: Present: Clear to Auscultation, Good Air Exchange. No: Respiratory Distress, Accessory Muscle Use Cardiovascular: Present: Regular Rate and Rhythm, Normal S1, S2. No: Murmurs Abdomen: Present: Tenderness (right sided mild tenderness). No: Distention, Peritoneal Signs Back: Present: Normal Inspection Upper Extremity: Present: Normal Inspection. No: Cyanosis, Edema Lower Extremity: Present: Normal Inspection. No: Edema Neurological: Present: GCS=15, CN II-XII Intact, Speech Normal Skin: Present: Warm, Dry, Normal Color. No: Rashes Psychiatric: Present: Alert, Oriented x 3, Normal Insight, Normal Concentration Medical Decision Making ED Course and Treatment: 08/06/18 19:02 Impression: 58 year old female who presents to the emergency department complaining of right sided abdomen pain. Plan: -- CT of Abdomen and Pelvis -- EKG -- Labs -- Pepcid -- IV Fluids -- Toradol -- Zofran -- Urine Culture -- Urinalysis -- Reassess and disposition Prior Visits: Notes and results from previous visits were reviewed. Progress Notes: On reevaluation, patient reports improvement of symptoms, denies any abdominal pain or nausea, had no episodes of diarrhea while in the ER. Lab and CT results d/w the patient. On exam, patient remains awake alert and oriented 3 in no acute distress, patient is smiling, is cheerful and in good spirits, she feels comfortable going home. Abdomen remains soft and nontender, repeat neuro exam shows no focal findings. Advised to follow up with primary care physician in 1-2 days without fail. Advised to take medication as prescribed. Return to the emergency room at any time for any new or worsening symptoms. Patient states she fully agrees with and understands discharge instructions. States that she agrees with the plan and disposition. Verbalized and repeated discharge instructions and plan. I have given the patient opportunity to ask any additional questions. - Lab Interpretations I have reviewed the lab results: Yes - RAD Interpretation Narrative RAD Interpretations (Text): CT Abdomen and Pelvis: LUNG BASES: The lung bases appear clear. No pleural effusions are seen. LIVER: Unremarkable. GALLBLADDER AND BILE DUCTS: S/p cholecystectomy. Surgical clips are noted in the gallbladder fossa. PANCREAS: Unremarkable. SPLEEN: Unremarkable. ADRENAL GLANDS: Unremarkable. KIDNEYS, URETERS, AND BLADDER: The kidneys appear within normal limits. There is no hydronephrosis or hydroureter. No urinary calculi are seen. STOMACH AND BOWEL: Thick walled fluid filled ileum compatible with enteritis. Infectious and inflammatory etiologies are considered. APPENDIX: No evidence of acute appendicitis on CT examination. PERITONEUM: No free fluid. No free air. LYMPH NODES: No lymphadenopathy is evident. REPRODUCTIVE: Unremarkable as visualized. VASCULATURE: No evidence of abdominal aortic aneurysm. BONES: No aggressive appearing osseous lesion. No acute osseous pathology evident. MISCELLANEOUS: 1.5 cm cystic subcutaneous lesion is noted in the left flank area compatible with a small abscess vs sebacious cyst, consider aspiration. IMPRESSION: 1. S/p cholecystectomy. 2. Thick walled fluid filled ileum compatible with enteritis. Infectious and inflammatory etiologies are considered. 3. 1.5 cm cystic subcutaneous lesion is noted in the left flank area compatible with a small abscess vs sebacious cyst, consider aspiration. Electronically signed on Aug 06, 2018 10:09:57 PM EST by: Fuentes Cole M.D., KIMMY Certified By ABR & CBCCT Fellowship Trained MRI and CT Specialist Radiology Orders: 08/06/18 19:03 ABD & PELVIS IV CONTRAST ONLY [CT] Stat Nursing Program Manager: Radiologist - Medication Orders Current Medication Orders: Sodium Chloride (Sodium Chloride 0.9%) 1,000 mls @ 1,000 mls/hr IV .Q1H STA Stop: 08/06/18 20:01 Discontinued Medications Famotidine (Pepcid) 20 mg IVP STAT STA Stop: 08/06/18 19:03 Ketorolac Tromethamine (Toradol) 30 mg IVP STAT STA Stop: 08/06/18 19:03 Ondansetron HCl (Zofran Inj) 4 mg IVP STAT STA Stop: 08/06/18 19:03 - Scribe Statement The provider has reviewed the documentation as recorded by the Damianibdallas Aparicio Provider Scribe Attestation: All medical record entries made by the Scribe were at my direction and personally dictated by me. I have reviewed the chart and agree that the record accurately reflects my personal performance of the history, physical exam, medical decision making, and the department course for this patient. I have also personally directed, reviewed, and agree with the discharge instructions and disposition. Disposition/Present on Arrival - Present on Arrival Any Indicators Present on Arrival: No History of DVT/PE: No History of Uncontrolled Diabetes: No Urinary Catheter: No History of Decub. Ulcer: No History Surgical Site Infection Following: None - Disposition Have Diagnosis and Disposition been Completed?: Yes Diagnosis: Gastroenteritis, Abdominal pain Disposition: HOME/ ROUTINE Disposition Time: 22:30 Patient Plan: Discharge Patient Problems: Current Active Problems Problem Status Onset Abdominal pain Acute Gastroenteritis Acute Condition: STABLE Discharge Instructions (ExitCare): Viral Gastroenteritis, Adult (DC), Acute Abdomen (Belly Pain), Adult (DC) Additional Instructions: Thank you for letting us take care of you today. You were treated for abdominal pain, gastroenteritis. The emergency medical care you received today was directed at your acute symptoms. If you were prescribed any medication, please fill it and take as directed. It may take several days for your symptoms to resolve. Return to the Emergency Department if your symptoms worsen, do not improve, or if you have any other problems. Please contact your doctor in 2 days for re-evaluation and follow up. Bring any paperwork you were given at discharge with you along with any medications you are taking to your follow up visit. Our treatment cannot replace ongoing medical care by a primary care provider (PCP) outside of the emergency department. Thank you for allowing the [facility] team to be part of your care today. If you had a CT scan: A Radiologist will review the ED reading if any change in treatment is needed we will contact you. Prescriptions: Dicyclomine [Bentyl] 20 mg PO QID PRN #20 tab PRN Reason: Other Ondansetron ODT [Zofran ODT] 4 mg PO DAILY PRN #20 odt PRN Reason: Nausea/Vomiting Forms: [employer] ([employer]), WORK NOTE
[2018-08-06 19:39] VITALS: RESP 18
[2018-08-06 19:39] LABS: URINE APPEARANCE CLEAR (CLEAR); URINE COLOR YELLOW (YELLOW)
[2018-08-06 19:50] LABS: URINE BACTERIA FEW (NEG)
[2018-08-06] MEDS ORDERED: Iohexol 350 MG/100 ML VIAL ONE (19:57)
[2018-08-06 23:11] VITALS: BP 118/71; PULSE 53; O2SAT 100
--- NOTE | 2018-08-07 09:10 | CT ---
Date of service: 08/06/2018 PROCEDURE: CT Abdomen and Pelvis with contrast HISTORY: R sided abdominal pain COMPARISON: None. TECHNIQUE: Contrast dose: 100 cc of Omni 350 Radiation dose: Total exam DLP = 281.05 mGy-cm. This CT exam was performed using one or more of the following dose reduction techniques: Automated exposure control, adjustment of the mA and/or kV according to patient size, and/or use of iterative reconstruction technique. FINDINGS: LOWER THORAX: Unremarkable. LIVER: Unremarkable. No gross lesion or ductal dilatation. GALLBLADDER AND BILE DUCTS: Removed PANCREAS: Unremarkable. No gross lesion or ductal dilatation. SPLEEN: Unremarkable. ADRENALS: Unremarkable. No mass. KIDNEYS AND URETERS: Unremarkable. No hydronephrosis. No solid mass. VASCULATURE: Unremarkable. No aortic aneurysm. No aortic atherosclerotic calcification or mural plaque present. BOWEL: Unremarkable. No obstruction. No gross mural thickening. APPENDIX: Normal appendix. PERITONEUM: Unremarkable. No free fluid. No free air. LYMPH NODES: Unremarkable. No enlarged lymph nodes. BLADDER: Unremarkable. REPRODUCTIVE: Unremarkable. BONES: No acute fracture. OTHER FINDINGS: There is a 2 cm subcutaneous cystic lesion over the left hip. This is most likely a sebaceous cyst. The report concurs with the preliminary [facility] report IMPRESSION: No acute intra-abdominal findings.
--- NOTE | 2018-08-07 12:22 | CARD ---
APPROVED REPORT Date of service: 08/06/2018 EKG Measurement Heart [id number] MI [id number] <Conclusion> Normal sinus rhythm Normal ECG
== END 2018-08-06 23:04 | disposition home or self-care (01) ==
LOC: ED 18:15
DX: K52.9 Noninfective gastroenteritis and colitis, unspecified (principal); I10 Essential (primary) hypertension; E11.9 Type 2 diabetes mellitus without complications; Z90.49 Acquired absence of other specified parts of digestive tract
CPT/HCPCS: 74177; 80053; 81001; 83690; 83735; 85025; 85610; 85730; 87086; 93005; 96361; 96374; 96375; 99283; J1885; J2405; J7030; Q9967